=== PATIENT | female | born 1935 | race Two or more races ===

== ENCOUNTER 2017-03-14 10:27 | Emergency (ER) | payer OTHER ==
[2017-03-14 10:36] VITALS: BMI 21.9
--- NOTE | 2017-03-14 10:41 | PDOC ---
History of Present Illness - General Chief Complaint: Injury Stated Complaint: HEAD INJURY Time Seen by Provider: 03/14/17 10:40 - History of Present Illness Initial Comments: 03/14/17 11:00 81 yo F with h/o Alzheimer dementia who arrives with head injury s/p mechanical fall. Per patient, patient daughter, and patient home health aide at bedside she was up attempting to go to bathroom at 0200 AM. Per health aide, patient on floor in room when she heard loud slam from downstairs. Sustained minor scalp abrasion. Aide treated patient head injury with ice. Denies ANDREW, back pain, LOC, weakness, sensory change, N/V, F/C, CP, SOB, urinary complaints, abdominal pain , diarrhea, constipation, weakness, sensory changes. Ambulates w/out assistance. Daily ASA 81 mg Past History - Past Medical History Allergies/Adverse Reactions: Allergies Allergy/AdvReac Type Severity Reaction Status Date / Time No Known Allergies Allergy Verified 03/14/17 10:32 Home Medications: Ambulatory Orders NK [No Known Home Medication] 03/14/17 Cardiac Disorders: Yes COPD: No Dementia: Yes HTN: Yes Hypercholesterolemia: Yes - Suicide/Smoking/Psychosocial Hx Smoking History: Never smoked Have you smoked in the past 12 months: No Information on smoking cessation initiated: No Hx Alcohol Use: No Drug/Substance Use Hx: No Substance Use Type: None Review of Systems - Review of Systems Comments:: 03/14/17 10:41 GENERAL/CONSTITUTIONAL: No fever or chills. No weakness. HEAD, EYES, EARS, NOSE AND THROAT: No change in vision. No ear pain or discharge. No sore throat.- CARDIOVASCULAR: No chest pain or shortness of breath RESPIRATORY: No cough, wheezing, or hemoptysis. GASTROINTESTINAL: No nausea, vomiting, diarrhea or constipation. GENITOURINARY: No dysuria, frequency, or change in urination. MUSCULOSKELETAL: No joint or muscle swelling or pain. No neck or back pain. SKIN: No rash NEUROLOGIC: No headache, vertigo, loss of consciousness, or change in strength/ sensation. ENDOCRINE: No increased thirst. No abnormal weight change HEMATOLOGIC/LYMPHATIC: No anemia, easy bleeding, or history of blood clots. ALLERGIC/IMMUNOLOGIC: No hives or skin allergy. *Physical Exam - Vital Signs Last Vital Signs Temp Pulse Resp BP Pulse Ox 98.3 F 81 18 151/60 100 03/14/17 10:33 03/14/17 10:33 03/14/17 10:33 03/14/17 10:33 03/14/17 10:33 - Physical Exam Comments: 03/14/17 10:41 GENERAL: Awake, alert, and fully oriented, in no acute distress HEAD:+ Fronto-parietal abrasion. Not actively bleeding. 1 cm. EYES: PERRLA, EOMI, sclera anicteric, conjunctiva clear ENT: Auricles normal inspection, hearing grossly normal, nares patent, oropharynx clear without exudates. Moist mucosa NECK: Normal ROM, supple, no lymphadenopathy, JVD, or masses LUNGS: No distress, speaks full sentences, clear to auscultation bilaterally HEART: Regular rate and rhythm, normal S1 and S2, no murmurs, rubs or gallops, peripheral pulses normal and equal bilaterally. ABDOMEN: Soft, nontender, normoactive bowel sounds. No guarding, no rebound. No masses EXTREMITIES : Normal inspection, Normal range of motion, no edema. No clubbing or cyanosis. NEUROLOGICAL: Cranial nerves II through XII grossly intact. Normal speech, normal gait, no focal sensorimotor deficits SKIN: Warm, Dry, normal turgor, no rashes or lesions noted. ED Treatment Course - LABORATORY CBC & Chemistry Diagram: 03/14/17 12:35 03/14/17 12:35 Medical Decision Making - Medical Decision Making 03/14/17 11:07 81 yo F with h/o Alzheimer dementia who arrives with head injury s/p mechanical fall at 0200 AM ( 03/14/17), while attempting to ambulate from bathroom. Denies ANDREW, back pain, LOC, weakness, sensory change, N/V, F/C, CP, SOB, urinary complaints, abdominal pain, diarrhea, constipation, weakness, sensory changes. Ambulates w/out assistance. Daily ASA 81 mg. Physical exam noteable for minor frontoparietal abrasion. Hemodynamically stable. Although low suspicion of acute bleed because of absent neuro deficits, will obtain head imaging to r/o SAH vs. hematoma d/t recent fall, age, and comorbidities. No evidence of basilar skull frx. ED Course: CBC,CMP,UA CT HEAD CT C SPINE 03/14/17 12:23 CT HEAD: Chronic microvascular changes. CT C SPINE: Chronic degenerative changes. 03/14/17 12:57 WBC: 16.8 03/14/17 12:57 UA: Trace ketones. CXR: No acute cardiopulmonary pathology on preliminary read 03/14/17 13:27 Patient stable and ready for discharge with return precautions. Advised to f/u with PMD within 24-72 hours. *DC/Admit/Observation/Transfer Diagnosis at time of Disposition: Fall Qualifiers: Encounter type: initial encounter Qualified Code(s): W19.XXXA - Unspecified fall, initial encounter Head injury due to trauma Qualifiers: Encounter type: initial encounter Qualified Code(s): S09.90XA - Unspecified injury of head, initial encounter - Discharge Dispostion Disposition: HOME Condition at time of disposition: Stable Admit: No - Referrals - Patient Instructions Printed Discharge Instructions: DI for Closed Head Injury Additional Instructions: Please return to the emergency department with any new or worsening symptoms or concerns. Please follow up with your primary care physician within the next one to three days. - Post Discharge Activity - Attestations Physician Attestion: 03/14/17 13:30 I attest to the information provided in this note.
[2017-03-14 11:30] VITALS: BP 124/85; PULSE 85; TEMP 98.2
[2017-03-14 12:47] LABS: BASO % 0.9 % (0-2.0); EOS % 0.6 % (0-4.5); HEMATOCRIT 43.8 % (32.4-45.2); HEMOGLOBIN 13.7 GM/dL (10.7-15.3); LYMPH % 17.8 % (8-40); MCHC 31.3 g/dl (32.0-36.0); MEAN CELL VOLUME 89.6 fl (80-96); MEAN PLT VOLUME 8.4 fl (7.5-11.1); MONO % 7.4 % (3.8-10.2); NEUT % 73.3 % (42.8-82.8); PLATELET COUNT 315 K/MM3 (134-434); RBC 4.89 M/mm3 (3.60-5.2); RDW 14.5 % (11.6-15.6); URINE APPEARANCE CLEAR; URINE BILIRUBIN NEGATIVE (NEGATIVE); URINE BLOOD NEGATIVE (NEGATIVE); URINE COLOR YELLOW; URINE GLUCOSE (UA) NEGATIVE (NEGATIVE); URINE KETONE TRACE (NEGATIVE); URINE LEUK ESTERASE NEGATIVE (NEGATIVE); URINE NITRITE NEGATIVE (NEGATIVE); URINE PROTEIN NEGATIVE (NEGATIVE); URINE UROBILINOGEN NEGATIVE mg/dL (0.2-1.0); WHITE BLOOD COUNT 16.8 K/mm3 (4.0-10.0)
[2017-03-14 13:12] LABS: ALK PHOS 64 U/L (45-117); ANION GAP 9 (8-16); BILIRUBIN,TOTAL 0.4 mg/dL (0.2-1.0); BLOOD UREA NITROGEN 19 mg/dL (7-18); CHLORIDE 102 mmol/L (98-107); CO2 29 mmol/L (21-32); GLUCOSE,RANDOM 105 mg/dL (74-106); SGOT/AST 24 U/L (15-37); SGPT/ALT 22 U/L (12-78); SODIUM 140 mmol/L (136-145); TOT PROT 8.5 g/dl (6.4-8.2)
--- NOTE | 2017-03-14 13:30 | PDOC ---
Attending Attestation - Resident Resident Name: Tyler Sandovalson - ED Attending Attestation I have performed the following: I have examined & evaluated the patient, The case was reviewed & discussed with the resident, I agree w/resident's findings & plan, Exceptions are as noted - HPI HPI: 03/14/17 13:27 81-year-old female with history of dementia brought in by home health aide status post fall. Patient ambulates independently at baseline, awoke during the night to use the restroom and fell on her way back. This was heard by the aide, who sleeps in her room and states the patient was alert and had no loss of consciousness. There was minor head injury which was irrigated at home, presents for evaluation. Patient has no complaints, home health aide states she is at her baseline tolerating normal by mouth and without recent fevers or infectious symptoms or dehydration. - Physicial Exam PE: 03/14/17 13:27 Afebrile, vital signs normal Very well-appearing, ambulating in the emergency department, smiling and feeling well Small superficial scalp abrasion to the right parietal region Full range of motion of neck, no focal tenderness Lungs are clear, abdomen benign, no cellulitis or joint swelling Neurologically intact - Medical Decision Making 03/14/17 13:28 Patient seen and evaluated with the resident. I agree with the overall evaluation, assessment, and management with the following summary of visit: 81-year-old female with seemingly accidental/mechanical fall with head injury. Neurologically intact, no evidence of infectious process. CT head and CT C-spine without acute pathology Baseline blood testing showed elevated white blood cell count but normal urinalysis cxr dispo accordingly: has 24h live-in aide. no indication for abx given no focal findings, but will provide f/u for her home visiting physicians. return criteria discussed, she is ambulating comfortably here without complaints.
== END 2017-03-14 13:51 | disposition home or self-care (01) ==
LOC: JER 10:27
DX: S00.01XA Abrasion of scalp, initial encounter (principal); W01.0XXA Fall on same level from slipping, tripping and stumbling without subsequent striking against object, initial encounter; Y93.01 Activity, walking, marching and hiking; Y92.031 Bathroom in apartment as the place of occurrence of the external cause; Y99.8 Other external cause status; G30.8 Other Alzheimer's disease; I10 Essential (primary) hypertension; E78.00 Pure hypercholesterolemia, unspecified; F02.80 Dementia in other diseases classified elsewhere, unspecified severity, without behavioral disturbance, psychotic disturbance, mood disturbance, and anxiety
CPT/HCPCS: 36415; 70450-TC; 71045-TC; 72125-TC; 80053; 81003; 85025; 99282-25